=== PATIENT | female | born 1985 | race Caucasian/White ===

== ENCOUNTER 2016-08-08 08:10 | Emergency (ER) | payer SELFPAY ==
[2016-08-08 09:02] VITALS: TEMP 97.9; BMI 50.1
[2016-08-08 11:09] VITALS: BP 125/65; PULSE 80
--- NOTE | 2016-08-08 11:18 | EDPRACDOC ---
- General Information Chief Complaint: Wound Stated Complaint: RASH Time Seen by Provider: 08/08/16 11:07 Information Source: Patient Mode of Arrival:: Car Home Medications: Home Medications Ciprofloxacin HCl [Cipro] 500 mg PO BID #20 tab 06/15/16 Meclizine HCl [Antivert] 25 mg PO Q6 #40 tab 06/15/16 Ondansetron HCl [Zofran] 4 mg PO Q6H PRN #20 tab 06/15/16 Phenazopyridine [Pyridium] 100 mg PO TID #30 tab 06/15/16 Ibuprofen 600 mg PO TID #20 tablet 08/08/16 Sulfamethoxazole/Trimethoprim [Bactrim Ds Tablet] 1 tab PO BID #14 tab 08/08/16 Allergies/Adverse Reactions: Allergies Allergy/AdvReac Type Severity Reaction Status Date / Time latex Allergy Hives* Verified 08/08/16 08:59 - History of Present Illness Onset: 1 week HPI: PT PRESENTS TODAY WITH PAINFUL MASS TO LEFT NARE AND RIGHT FOREARM X 2-3 DAYS. NO FEVER. Location: Reports: Face, Extremity Relevent History Of: Reports: None Prior Abscess: Reports: None Pain: Reports: Moderate Quality: Reports: Painful, Red Associated Signs & Symptoms: Reports: None ED Past Medical History - History Reviewed Yes Nurses notes reviewed and agree except as marked - Patient Medical History Respiratory History: Reports: Asthma GI/ History: Reports: Gastroesophageal Reflux Psychological History: Reports: Depression Systemic History: Denies: Cancer Surgical History: Denies: Hysterectomy - Social Medical History Smoking Status: Heavy tobacco smoker (5 or more cigarettes/day or daily pipe/ cigar) EDM Review of Systems - Review of Systems ROS Negative Except as Marked: Yes All systems reviewed and were negative except as marked Constitutional: No Symptoms Reported Eyes: No Symptoms Reported Ears: No Symptoms Reported Throat: No Symptoms Reported Nose: Other (MASS) Respiratory: No Symptoms Reported Cardiovascular: No Symptoms Reported Gastrointestinal: No Symptoms Reported Neurological: No Symptoms Reported Musculoskeletal: Arm Integumentary: Wound - Physical Exam Constitutional: Alert (Awake), No apparent distress Oriented to: Time, Person, Place Last recorded Vital Signs: Last Vital Signs Temp 97.9 F 08/08/16 08:59 Pulse 80 08/08/16 11:09 Resp 18 08/08/16 11:09 BP 125/65 08/08/16 11:09 Pulse Ox 98 02/05/17 11:09 Oxygen Pulse Oxygen Saturation 98 O2 Device Room Air Oxygen Flow Rate Fraction of Inspired Oxygen ( FIO2) - HEENT Head: Normal Eye Exam: Normal Nose: Other (NOTED SMALL ABSCESS TO LEFT NARE AT BASE OF NOSE; NOT DRAINABLE; MILD LOCAL CELLULITIS) Neck: Normal, Denies Pain, Midline - Respiratory/Cardiovascular Respiratory: Normal - CTA Cardiovascular: Normal - GI Palpation: Normal Tenderness: Non tender - Musculoskeletal Back: Normal Extremities: Other (NOTED SMALL PUSTULE TO RIGHT AC AREA WITH LOCAL CELLULITIS EXTENDING ABOUT 4 CM; NON-FLUCTUANT; NON-DRAINABLE; NO LYMPHADENOPATHY) - Integumentary Skin: Normal Lymphatics: Normal - Neurologic Cerebellar: Normal Mood Description: Normal Thought: Coherent Perception: Normal Decision Time to Discharge: :17 - Departure Disposition: Home Condition: Good Final Diagnosis: Abscess Instructions: MRSA (Methicillin-Resistant Staphylococcus Aureus) (ED) Education/Counseling Given To: Patient Education/Counseling Given Regarding: Diagnosis, Treatment, Follow Up Referrals: None,No Provider [Primary Care Provider] - One Week [facility] [NonStaff] - One Week Prescriptions: New Ibuprofen 600 mg PO TID #20 tablet Sulfamethoxazole/Trimethoprim [Bactrim Ds Tablet] 1 tab PO BID #14 tab No Action Ciprofloxacin HCl [Cipro] 500 mg PO BID #20 tab Meclizine HCl [Antivert] 25 mg PO Q6 #40 tab Ondansetron HCl [Zofran] 4 mg PO Q6H PRN #20 tab PRN Reason: Nausea/Vomiting Phenazopyridine [Pyridium] 100 mg PO TID #30 tab Additional Instructions: DO NOT PICK AT SITE. FOLLOW UP WITH PCP IN 2-3 DAYS IF NEEDED.
== END 2016-08-08 11:22 | disposition home or self-care (01) ==
LOC: EDMC 08:10
DX: L02.91 Cutaneous abscess, unspecified (principal)
CPT/HCPCS: 99282